=== PATIENT | female | born 1985 | race Caucasian/White ===

== ENCOUNTER → 2021-07-28 10:12 | Outpatient (BNVA) | payer SELFPAY | PROVIDERS: PCP Physician Assistant Medical; Visit Provider Internal Medicine | DX: Z01.812 Encounter for preprocedural laboratory examination (principal); K21.9 Gastro-esophageal reflux disease without esophagitis; Z20.822 Contact with and (suspected) exposure to COVID-19 | CPT/HCPCS: 87635 ==

== ENCOUNTER 2021-08-03 07:45 | Day surgery (SDC) | payer SELFPAY ==
[2021-07-29 13:27] VITALS: BMI 33.0
--- NOTE | 2021-08-03 07:53 | W.PM.OPSFHP ---
Same Day Surgery H&P Indication for Procedure/HPI DATE OF PROCEDURE: August 03, 2021 CHIEF COMPLAINT/INDICATIONFOR SURGICAL PROCEDURE: Chronic heartburn PREOP DIAGNOSIS: Chronic heartburn PLANNED PROCEDRUE: Operation Date: 08/03/21 09:00 Proposed Procedures p EGD 24211 K21.9(Not Applicable) - Hugo Coyne MD Medications/Allergies* Home Medications Medication Instructions Recorded Confirmed Type calcium carbonate 200 mg calcium 200 mg PO TID 06/25/21 07/29/21 History (500 mg) chewable tablet omeprazole magnesium 20 mg 20 mg PO DAILY 06/25/21 07/29/21 History tablet,delayed release Allergies/Adverse Reactions Allergy/AdvReac Type Severity Reaction Status Date / Time No Known Allergies Allergy Verified 07/22/21 10:26 Pertinent History/Comorbid Conditions* Medical History (Updated 06/25/21 @ 12:06 by ALLEN Hernandez) Chronic gastroesophageal reflux disease Social History Smoking and tobacco status: former smoker Pertinent Exam Findings alert, oriented x 3, clear to auscultation bilaterally, regular rate & rhythm, operative site marked and procedure specific exam findings Recommendations Surgery/Procedure today Coding Level of Care Code Acute [employer] for Kim Wolfe
--- NOTE | 2021-08-03 08:17 | P.ANESASSM_ITS ---
Pre-Anesthetic Assessment Pre-Anesthetic Assessment: Height/Weight: Height 1.78 m Weight 104.326 kg Preop Diagnosis: GERD Proposed Procedure: Operation Date: 08/03/21 09:00 Proposed Procedures p EGD 27616 K21.9(Not Applicable) - Hugo Coyne MD Was Beta [place] taken within 24 hours: N/A Was Clonidine taken within 24 hours: N/A Social: Social History: No alcohol and No tobacco Exam: Pre-Anes Outpt Exam: alert, oriented x 3, clear to auscultation bilaterally and regular rate & rhythm Airway: Submandibular: WNL Cervical ROM: WNL MP: 2 Dentition: Full GI: GI: GERD Metabolic: Metabolic: Morbid obesity Anesthetic Plan: ASA status: 2 Anesthesia: MAC Risk of > 500 ml blood l oss (7ml/kg in children): No PFSH Anesthesia PFSH: Medical History Chronic gastroesophageal reflux disease Social History Smoking and tobacco status: former smoker Data Anesthesia Cardiac Studies: No Data to Display
[2021-08-03 08:27] VITALS: BP 130/99; PULSE 107; RESP 18; TEMP 36.1; O2SAT 100
[2021-08-03] MEDS: sodium chloride 0.9% 1,000 ML 30 ML IV (08:31)
[2021-08-03 08:38] LABS: OR HCG Qualitative Urine Negative (Negative)
[2021-08-03 09:55] VITALS: BP 111/73; PULSE 98; RESP 20; TEMP 36.3; O2SAT 97
[2021-08-03 10:04] VITALS: BP 105/77; PULSE 102; RESP 18; O2SAT 96
--- NOTE | 2021-08-03 10:54 | ANE.PACU2 ---
Inpatient post-anesthesia follow up: Airway intact: Yes Vital signs: Temperature 97.3 F Pulse Rate 102 Respiratory Rate 18 Blood Pressure 105/77 Pulse Oximetry 96 Oxygen Delivery Me thod Room Air Oxygen Flow Rate Fraction of Inspir ed Oxygen Hydration adequate: Yes Nausea and vomiting: No Mental status: Baseline
[2021-08-04 13:25] LABS: H. Pylori / CLO Test Negative
== END 2021-08-03 10:37 | disposition home or self-care (01) ==
PROVIDERS: Anesthesiology; PCP Physician Assistant Medical; Visit Provider Internal Medicine
PROC: 0DJ08ZZ Inspection of Upper Intestinal Tract, Via Natural or Artificial Opening Endoscopic (ICD-10-PCS; CPT 43235; principal; 2021-08-03 09:00)
DX: R12 Heartburn (principal); K21.00 Gastro-esophageal reflux disease with esophagitis, without bleeding; K29.70 Gastritis, unspecified, without bleeding; Z87.891 Personal history of nicotine dependence
CPT/HCPCS: 43239; 81025; 84703; 87077; 96360; 96361; J2704; J7030

== ENCOUNTER → 2022-12-30 09:20 | Outpatient (BNVA) | payer SELFPAY | PROVIDERS: PCP Physician Assistant Medical; Visit Provider Emergency Medicine | DX: I10 Essential (primary) hypertension (principal); R00.2 Palpitations | CPT/HCPCS: 80053; 80061; 84443; 85025 ==